=== PATIENT | male | born 1960 | race Caucasian/White ===

== ENCOUNTER 2024-05-11 05:53 | Day surgery (SDC) | payer OTHER ==
[2024-05-08 08:19] VITALS: BP 141/66
[~2024-05-11] VITALS: Ht 177.8 cm; Wt 95.5 kg
[~2024-05-11 05:53] MED LIST: ACID CONTROLLER10 MG PO; BASAGLAR K100 UNIT/1 SQ; BASAGLAR T100 UNIT/1 SQ; DICLOFENAC SODI75 MG PO; FLOMAX0.4 MG PO; HYDROCHLOROTHIA25 MG PO; INSULIN PUMP1 EACH MC; LIPITOR40 MG PO; LISINOPRIL40 MG PO; METFORMIN HCL500 M1 PO; NOVOLOG FL100 UNIT/1 SUB-Q; ROSUVASTATIN CA20 MG; VITAMIN D35000 UNI1 PO
[2024-05-11 06:02] VITALS: BP 137/58
[2024-05-11] MEDS ORDERED: IBLOOD GLUCOSE TEST STRIP 1 EA TEST VI PRN (07:00)
[2024-05-11] MEDS ORDERED: LACTATED RINGER'S 1,000 ML IV SCH (07:00)
[2024-05-11] MEDS ORDERED: LIDOCAINE HCL 1% 5 ML SDV INJ ONE (07:00)
[2024-05-11] MEDS ORDERED: propofoL 200 MG/20 ML VIAL ONE (07:14)
[2024-05-11] MEDS ORDERED: LIDOCAINE HCL 2% 5 ML SDV ONE (07:14)
--- NOTE | 2024-05-11 07:18 | NUR ---
PT NOT AVAILABLE FOR VISIT. PROVIDED PRAYER.
[2024-05-11 08:18] VITALS: BP 136/89
--- NOTE | 2024-05-11 08:44 | NUR ---
05/11/24 0844 Radha Houser 0753- PT ARRIVES TO THE PACU WITH A NATURAL AIRWAY AND A MASK ON WITH 6L OF O2. PT IS NONREACTIVE TO VERBAL AND TACTILE STIMULI. ABDOMEN IS SOFT AND NONDISTENDED. LR INFUSING IN HIS RIGHT HAND. PT LAYING ON LEFT SIDE. SNORING NOTED. VSS. ALL MONITORS PUT IN PLACE. 0759- PT BEGINS TO COUGH AND PASS GAS. 02 TURNED OFF AND MASK REMOVED. PT OPENS EYES AND DENIES PAIN AND NAUSEA. PT ENCOURAGED TO CONTINUE TO PASS GAS. HOB SLIGHTLY INCREASED. 0810- PT HOB INCREASED AND PT SIPPIN NAS WATER. PT TOLERATING WELL. 0822- PT SITTING UP AT THE SIDE OF THE BED. PT DENIES PAIN AND NAUSEA. PT STATES HE NEEDS TO USE THE RESTROOM. PT DISCONNECTED FROM MONITORS. PT AMBULATES INDEPENDENTLY ACROSS ROOM TO BATHROOM. GAIT IS EVEN AND STEADY. PT GETTING DRESSED IN RESTROOM INDEPENDENTLY WITH NO ISSUES. 0835- PT COMES OUT OF RESTROOM DRESSED. GAIT EVEN AND STEADY. PT IN WHEELCHAIR. IV REMOVED. DC INSTRUCTIONS GONE OVER. NO QUESTIONS OR CONCERNS. PT HAS ALL BELONGINGS WHEN DISCHARGED FROM PACU.
--- NOTE | 2024-05-11 10:18 | OR ---
[facility] [address], [place] [address] Signed DATE OF OPERATION: 05/11/2024 SURGEON: Dipesh Mcpherson MD PREOPERATIVE DIAGNOSES: 1. Screening. 2. Father with possible history of colonic polyps. 3. Colonoscopy age 51 in 2012 said to be negative per patient. POSTOPERATIVE DIAGNOSIS: Minimal internal hemorrhoids. PROCEDURE: Colonoscopy without biopsy. ESTIMATED BLOOD LOSS: None. INDICATIONS: Rafiq is a 63-year-old obese diabetic gentleman, asked to see me for followup colonoscopy. He underwent what he believes is a negative colonoscopy in 2012 at the age of 51 at the [facility]. We have been trying to track down those results, which is quite difficult. He thinks maybe his dad had colonic polyps, but he is not sure. He said he has no lower GI complaints. There is no family history of colon cancer to his knowledge. In the office, I gave him a pamphlet on colonoscopy. We reviewed the nature of the test. There is risk including, but not limited to gas bloating, crampy abdominal pain, bleeding, perforation requiring surgery, and missed diagnosis. We also reviewed the written instructions for bowel prep line by line. We went through his medications very carefully. He has been noncompliant with a lot of his medications. He has been going through his second divorce and retiring from his second job and he said it has been very stressful. He said the second job was more stressful than his first. His preop blood work showed the blood sugar at 350, today it was 233. His hemoglobin A1c is just over 8. Overall, he is improving. Nevertheless, we felt it was root that he has monitored anesthesia care with propofol infusion, particularly since he has a full round face and a heavy neck, chest and abdomen. He had expressed understanding and wished to proceed. PROCEDURE IN DETAIL: Rafiq was taken into our endoscopy suite and placed in the left lateral decubitus position. He was given propofol infusion per our nurse dredge captain. A digital rectal Electronically Signed By: DIPESH MCPHERSON MD 05/11/24 1018 PATIENT NAME: RAFIQ HEMPHILL SR OPERATIVE REPORT DATE OF : 58 REPORT #: [id number] PHYSICIAN: DIPESH MCPHERSON MD PCP: SHEREE BRYAN MD REPORT IS CONFIDENTIAL AND NOT TO BE RELEASED WITHOUT AUTHORIZATION [facility] [address], [place] [address] Signed exam was performed. He had minimal if any external hemorrhoids. He had good sphincter tone. I could just reach the bottom of his prostate which is enlarged and indurated. The adult colonoscope was then introduced and advanced all the way around into the cecum under direct visualization of camera without difficulty. It took just a little bit of abdominal compression to get the scope directly into the cecum itself. His prep was good. He had a few areas of liquid stool that we were able to suction out quite readily. We could easily see the appendiceal orifice and ileocecal valve. The scope was then slowly withdrawn. We took several pictures throughout for photodocumentation. We found no pathology throughout the entire colon or rectum. Upon retroflexion of scope he has minimal standard internal hemorrhoid columns. After this, the gas was suctioned out, colonoscope removed. Rafiq tolerated the procedure quite well. RECOMMENDATIONS: Rafiq can follow up in 10 years for repeat screening colonoscopy. Dipesh Mcpherson MD ALB/MODL /[id number] cc: Dipesh Mcpherson MD [facility] Copies: DIPESH MCPHERSON MD [facility] ~ Electronically Signed By: DIPESH MCPHERSON MD 05/11/24 1018 PATIENT NAME: RAFIQ HEMPHILL OPERATIVE REPORT DATE OF : 58 REPORT #: [id number] PHYSICIAN: DIPESH MCPHERSON MD PCP: SHEREE BRYAN MD REPORT IS CONFIDENTIAL AND NOT TO BE RELEASED WITHOUT AUTHORIZATION
== END 2024-05-11 08:35 | disposition home or self-care (01) ==
LOC: DS 05:53
PROVIDERS: ATTEND Colon & Rectal Surgery
PROC: 0DJD8ZZ Inspection of Lower Intestinal Tract, Via Natural or Artificial Opening Endoscopic (ICD-10-PCS; principal; 2024-05-11 07:30)
DX: Z12.11 Encounter for screening for malignant neoplasm of colon (principal); K64.8 Other hemorrhoids; K64.4 Residual hemorrhoidal skin tags; C61 Malignant neoplasm of prostate; I10 Essential (primary) hypertension; E10.9 Type 1 diabetes mellitus without complications; E78.5 Hyperlipidemia, unspecified; E66.9 Obesity, unspecified; Z68.30 Body mass index [BMI] 30.0-30.9, adult; Z79.84 Long term (current) use of oral hypoglycemic drugs; Z79.899 Other long term (current) drug therapy; Z90.49 Acquired absence of other specified parts of digestive tract
CPT/HCPCS: 00811; J2704; J7121